=== PATIENT | female | born 1975 | race Asian ===

== ENCOUNTER 2020-04-16 15:39 | Emergency (ER) | payer SELFPAY ==
[~2020-04-16] VITALS: Ht 147.3 cm; Wt 42.2 kg
[2020-04-16] MEDS ORDERED: ROBAXIN-750750 MG PO (16:07)
[2020-04-16] MEDS ORDERED: VALIUM2 MG PO (16:07)
[2020-04-16] MEDS ORDERED: NAPROXEN250 MG PO (16:07)
== END 2020-04-16 16:07 | disposition home or self-care (01) ==
LOC: ER 15:43
DX: H92.02 Otalgia, left ear (principal); S00.83XA Contusion of other part of head, initial encounter; M62.838 Other muscle spasm; V43.52XA Car driver injured in collision with other type car in traffic accident, initial encounter; Y92.488 Other paved roadways as the place of occurrence of the external cause
CPT/HCPCS: 99283

== ENCOUNTER 2021-05-25 16:00 | Outpatient (RCR) | payer BC ==
[~2021-05-25 16:00] MED LIST: NAPROXEN250 MG PO; ROBAXIN-750750 MG PO; VALIUM2 MG PO
== END 2021-05-26 ==
LOC: OT 16:00
PROVIDERS: ATTEND Orthopaedic Surgery
DX: M77.11 Lateral epicondylitis, right elbow (principal)